=== PATIENT | male | born 1995 | race Caucasian/White ===

== ENCOUNTER 2016-03-02 10:39 | Emergency (ER) | payer SELFPAY ==
--- NOTE | 2016-03-02 10:52 | ER Document Report ---
ED Medical Screen (RME) - General Stated Complaint: EYE IRRITATION Notes: 20 yo male c/o bilat eye redness, swelling and drainage. pt treated with polytrim x 2 days, symptoms have gotten worse. no fever. noncontact wearer. no eye pain. TRAVEL OUTSIDE OF THE [place] IN LAST 30 DAYS: No - Related Data Allergies/Adverse Reactions: acetaminophen [From Tylenol] Adverse Reaction (Verified 01/23/16 11:03) Past Medical History Psychiatric Medical History: Reports: Hx Attention Deficit Hyperactivity Disorder - ODD - Immunizations Immunizations up to date: Yes Hx Diphtheria, Pertussis, Tetanus Vaccination: Yes Physical Exam - Vital signs Vitals: Temp Pulse Resp BP Pulse Ox 98.3 F 104 H 16 155/88 H 94 03/02/16 10:47 03/02/16 10:47 03/02/16 10:47 03/02/16 10:47 03/02/16 10:47 Course - Vital Signs Vital signs: Temp Pulse Resp BP Pulse Ox 98.3 F 104 H 16 155/88 H 94 03/02/16 10:47 03/02/16 10:47 03/02/16 10:47 03/02/16 10:47 03/02/16 10:47
[2016-03-02] MEDS ORDERED: TETRACAINE HCL 0.5% OPH SOLN 2 ML OU ONE (11:39)
--- NOTE | 2016-03-02 11:43 | ER Document Report ---
HPI - HPI Onset: Other - Monday Onset/Duration: Gradual Pain Level: 3 Context: 20-year-old noncontact lens wearer complaining of redness, drainage, to both eyes. The right eye hurts. He states his vision is now blurry in the right eye. He started polytrim eyedrops which he uses 6 times a day since 02-27, when he was seen at [facility] he was tx in triage without exam. He was exposed to someone in the same bed that had conjunctivitis. Associated Symptoms: None Exacerbated by: Other - light Relieved by: Denies Similar symptoms previously: No - ROS ROS below otherwise negative: Yes Systems Reviewed and Negative: Yes All other systems reviewed and negative - REPRODUCTIVE Reproductive: DENIES: : - DERM Skin Color: Normal Past Medical History - General Information source: Patient - Social History Smoking Status: Current Every Day Smoker Chew tobacco use (# tins/day): Yes Frequency of alcohol use: Social Drug Abuse: Marijuana Lives with: Family Family History: Reviewed & Not Pertinent Patient has suicidal ideation: No Patient has homicidal ideation: No Psychiatric Medical History: Reports: Hx Attention Deficit Hyperactivity Disorder - ODD - Immunizations Immunizations up to date: Yes Hx Diphtheria, Pertussis, Tetanus Vaccination: Yes Vertical Provider Document - CONSTITUTIONAL Agree With Documented VS: Yes Exam Limitations: No Limitations General Appearance: No Apparent Distress - INFECTION CONTROL TRAVEL OUTSIDE OF THE [place] IN LAST 30 DAYS: No - HEENT HEENT: Conjuctival Injection - bright palpebral more than bulbar. no limbic flare. no fluorescein uptake. No FB., Normocephalic, PERRLA - NECK Neck: Supple. negative: Lymphadenopathy-Left, Lymphadenopathy-Right Notes: right preauricular node - RESPIRATORY O2 Sat by Pulse Oximetry: 94 - NEURO Level of Consciousness: Awake, Alert - DERM Integumentary: Warm, Dry, No Rash Course - Re-evaluation Re-evalutation: 03/02/16 12:28 consult siddharth ibarra. - Vital Signs Vital signs: Temp Pulse Resp BP Pulse Ox 98.3 F 104 H 16 155/88 H 94 03/02/16 10:47 03/02/16 10:47 03/02/16 10:47 03/02/16 10:47 03/02/16 10:47 Discharge - Discharge Clinical Impression: Bilateral conjunctivitis Qualifiers: Conjunctivitis type: acute Acute conjunctivitis type: unspecified Qualified Code(s): H10.33 - Unspecified acute conjunctivitis, bilateral Condition: Good Disposition: HOME, SELF-CARE Instructions: Conjunctivitis ([facility]), Eyedrop Use ([facility]) Additional Instructions: stop the polymixin eyedrops start the new eyedrops- besovance. 1 drop each eye three times per day see the eye doctor for follow up tomorrow to er if fworse Forms: Return to Work Referrals: LANA GALAVIZ MD [ACTIVE STAFF] - Follow up tomorrow
[2016-03-02] MEDS ORDERED: DIPHENHYDRAMINE HCL 50 MG CAPSULE PO ONE (11:49)
[2016-03-02] MEDS ORDERED: IBUPROFEN 800 MG TABLET PO ONE (11:49)
[2016-03-02] MEDS ORDERED: BESIFLOXACIN HCL 0.6% OPH SUSP 5 ML BOTTLE OU ONE (12:25)
[2016-03-02 12:57] VITALS: BP 153/90
== END 2016-03-02 12:50 | disposition home or self-care (01) ==
LOC: EEVIPCON 10:39 → ER 10:39
DX: H10.33 Unspecified acute conjunctivitis, bilateral (principal); H53.8 Other visual disturbances; F17.210 Nicotine dependence, cigarettes, uncomplicated
CPT/HCPCS: 99282

== ENCOUNTER 2016-03-03 15:54 | Emergency (ER) | payer SELFPAY ==
--- NOTE | 2016-03-03 16:10 | ER Document Report ---
ED Medical Screen (RME) - General Chief Complaint: Eye Problem Stated Complaint: EYE SWELLING Time seen by provider: 16:08 Mode of Arrival: Ambulatory Information source: Patient Notes: 20-year-old male presents to ED for continued IV pain drainage from both eyes. He was seen yesterday for the same was started on eyedrops with no relief states that they didn't change the eyedrops and he still has had no relief has not been able to sleep and his eyes are very painful. Patient states that the problem has been going on now for a week with no relief. He has not been to an eye doctor yet. I have greeted and performed a rapid initial assessment of this patient. A comprehensive ED assessment and evaluation of the patient, analysis of test results and completion of medical decision making process will be conducted by an additional ED providers. TRAVEL OUTSIDE OF THE [place] IN LAST 30 DAYS: No - Related Data Allergies/Adverse Reactions: acetaminophen [From Tylenol] Adverse Reaction (Verified 03/03/16 16:07) Past Medical History Renal/ Medical History: Denies: Hx Peritoneal Dialysis Psychiatric Medical History: Reports: Hx Attention Deficit Hyperactivity Disorder - ODD - Immunizations Immunizations up to date: Yes Hx Diphtheria, Pertussis, Tetanus Vaccination: Yes Physical Exam - Vital signs Vitals: Temp Pulse Resp BP Pulse Ox 97.8 F 88 16 138/86 H 96 03/03/16 16:01 03/03/16 16:01 03/03/16 16:01 03/03/16 16:01 03/03/16 16:01 Course - Vital Signs Vital signs: Temp Pulse Resp BP Pulse Ox 97.8 F 88 16 138/86 H 96 03/03/16 16:01 03/03/16 16:01 03/03/16 16:01 03/03/16 16:01 03/03/16 16:01
[2016-03-03] MEDS ORDERED: CYCLOPENTOLATE HCL 1% OPH SOLN 2 ML OU ONE (17:10)
--- NOTE | 2016-03-03 17:20 | ER Document Report ---
ED General - General Chief Complaint: Eye Problem Stated Complaint: EYE SWELLING Mode of Arrival: Ambulatory Notes: 20-year-old male here with complaints of bilateral eye pain redness watering and light sensitivity that has been ongoing for approximately one week. He denies getting anything into his eyes. He was seen once at the [facility] emergency department and then again here yesterday and was prescribed an antibiotic drop. He states that he's been using the antibiotic drop. He states that his main complaint is that he cannot sleep due to the symptoms. He was instructed yesterday to follow-up with Dr. Galaviz of ophthalmology. When asked if he followed up with the [facility], patient states "oh, I forgot". TRAVEL OUTSIDE OF THE [place] IN LAST 30 DAYS: No - Related Data Allergies/Adverse Reactions: acetaminophen [From Tylenol] Adverse Reaction (Verified 03/03/16 16:07) Past Medical History - General Information source: Patient - Social History Smoking Status: Current Every Day Smoker Family History: Reviewed & Not Pertinent Patient has suicidal ideation: No Patient has homicidal ideation: No Renal/ Medical History: Denies: Hx Peritoneal Dialysis Psychiatric Medical History: Reports: Hx Attention Deficit Hyperactivity Disorder - ODD - Immunizations Immunizations up to date: Yes Hx Diphtheria, Pertussis, Tetanus Vaccination: Yes Review of Systems - Review of Systems Notes: See history of present illness for pertinent positive review of systems; otherwise all review of systems have been reviewed and are negative Physical Exam - Vital signs Vitals: Temp Pulse Resp BP Pulse Ox 97.8 F 88 16 138/86 H 96 03/03/16 16:01 03/03/16 16:01 03/03/16 16:01 03/03/16 16:01 03/03/16 16:01 - Notes Notes: PHYSICAL EXAMINATION: GENERAL: Well-appearing and in no acute distress. HEAD: Atraumatic, normocephalic. EYES: Pupils equal round and reactive to light, extraocular movements intact, conjunctiva with moderate to severe chemosis visualized, some mild yellow drainage ENT: nares patent, oropharynx clear without exudates. Moist mucous membranes. NECK: Normal range of motion, supple without lymphadenopathy LUNGS: CTAB and equal. No wheezes rales or rhonchi. HEART: Regular rate and rhythm without murmurs ABDOMEN: Soft, no tenderness. No guarding, no rebound EXTREMITIES: Normal range of motion, no pitting edema. No cyanosis. NEUROLOGICAL: Cranial nerves grossly intact. Normal sensory/motor exams. PSYCH: Normal mood, normal affect. SKIN: Warm, Dry, normal turgor, no rashes or lesions noted Course - Re-evaluation Re-evalutation: 03/03/16 17:18 MEDICAL DECISION MAKING: Concern for bacterial conjunctivitis versus epidemic keratoconjunctivitis versus anterior uveitis He likely has some component of anterior uveitis so I'll send him home with a bottle of Cyclogyl He is noncompliant and has not followed up with ophthalmology I discussed with him the importance of following up with them first thing in the morning I will send him home with prescription for Phenergan to allow him to get some sleep Patient understands and agrees to the plan of care - Vital Signs Vital signs: Temp Pulse Resp BP Pulse Ox 97.8 F 88 16 138/86 H 96 03/03/16 16:01 03/03/16 16:01 03/03/16 16:01 03/03/16 16:01 03/03/16 16:01 Discharge - Discharge Clinical Impression: Acute eye pain Bilateral conjunctivitis Qualifiers: Conjunctivitis type: acute Acute conjunctivitis type: unspecified Qualified Code(s): H10.33 - Unspecified acute conjunctivitis, bilateral Condition: Good Disposition: HOME, SELF-CARE Additional Instructions: You were seen in the emergency department at [facility]. Continue using your antibiotic drops. Also use the Cyclogyl drops you were given here in the emergency department 3 times daily for the next few days. You were prescribed Phenergan which is a sedating medication so be sure not to operate heavy machinery (example - driving) and be sure you are not too sedated to walk appropriately. Please followup with the [facility] first thing in the morning for further management/evaluation. Please return to the emergency department for worsening of symptoms or any symptom that you deem to be concerning or life-threatening. Thank you for allowing us to be part of your care. Prescriptions: Promethazine HCl [Phenergan 25 mg Tablet] 25 mg PO Q8HP PRN #7 tablet PRN Reason: Sleep Or Insomnia Meloxicam [Mobic 15 mg Tablet] 15 mg PO DAILYP PRN #7 tablet PRN Reason: Referrals: LANA GALAVIZ MD [ACTIVE STAFF] - Follow up tomorrow
[2016-03-03 17:48] VITALS: BP 140/77
== END 2016-03-03 17:48 | disposition home or self-care (01) ==
LOC: EEVIPCON 15:54 → ER 15:54
DX: H10.33 Unspecified acute conjunctivitis, bilateral (principal); H57.13 Ocular pain, bilateral; F17.210 Nicotine dependence, cigarettes, uncomplicated
CPT/HCPCS: 99283; J3490

== ENCOUNTER 2016-05-31 02:16 | Emergency (ER) | payer OTHER ==
[2016-05-31] MEDS ORDERED: OXYCODONE HCL IR 5 MG TABLET PO ONE (03:38)
[2016-05-31] MEDS ORDERED: OXYCODONE-ACETAMINOPHEN 5-325 MG TABLET PO ONE (03:38)
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
[2016-05-31 07:06] VITALS: BP 134/64
== END 2016-05-31 07:06 | disposition home or self-care (01) ==
LOC: ER 02:16
DX: S16.1XXA Strain of muscle, fascia and tendon at neck level, initial encounter (principal); S86.912A Strain of unspecified muscle(s) and tendon(s) at lower leg level, left leg, initial encounter; S50.01XA Contusion of right elbow, initial encounter; S20.212A Contusion of left front wall of thorax, initial encounter; S09.90XA Unspecified injury of head, initial encounter; V48.6XXA Car passenger injured in noncollision transport accident in traffic accident, initial encounter; M25.521 Pain in right elbow; M79.631 Pain in right forearm; R07.81 Pleurodynia; M25.562 Pain in left knee; M79.89 Other specified soft tissue disorders
CPT/HCPCS: 99284; 73070; 73090; 73562; 71101; 70450; 72125; L0120

== ENCOUNTER 2017-05-05 16:53 | Emergency (ER) | payer SELFPAY ==
[2017-05-05 17:40] VITALS: BP 138/92
--- NOTE | 2017-05-05 18:00 | ER Document Report ---
ED Substance Abuse / Acc. OD - General Mode of Arrival: Medic Information source: Patient, Parent, Emergency Med Personnel TRAVEL OUTSIDE OF THE [place] IN LAST 30 DAYS: No - HPI Patient complains to provider of: Accidental overdose, Drug abuse - Heroin Onset: This evening Associated Symptoms: Other - see notes above - General Chief Complaint: Accidental Overdose Stated Complaint: POSSIBLE OVERDOSE Time Seen by Provider: 05/05/17 17:33 Notes: 21 year old male with history of heroin abuse (started 1 year ago; with prior percocet abuse) presents to the ED via EMS after overdosing on heroin and being found unresponsive by his parents. Parents started CPR on the patient and EMS gave the patient 2 mg of Narcan before the patient was awake and alert. At bedside, patient explains that he was not trying to kill himself and he does not have any suicidal ideation. This is the first time Narcan has been used on the patient. Patient has tried quitting in the past, but has been unsuccessful because 'no one is helping'. Patient has tried to get help from Angie Rhys and his mother, both being unsuccessful. Patient is currently complaining of chest pain ('as if someone has stomped on it'), nausea, weakness, and malaise. Patient denies vomiting or diarrhea. (SANCHO BARKER) - Related Data Allergies/Adverse Reactions: acetaminophen [From Tylenol] Adverse Reaction (Verified 03/03/16 16:07) Past Medical History - General Information source: Patient - Social History Smoking Status: Never Smoker Chew tobacco use (# tins/day): No Drug Abuse: Heroin, Prescription drugs Family History: Reviewed & Not Pertinent Renal/ Medical History: Denies: Hx Peritoneal Dialysis Psychiatric Medical History: Reports: Hx Attention Deficit Hyperactivity Disorder - ODD - Immunizations Immunizations up to date: Yes Hx Diphtheria, Pertussis, Tetanus Vaccination: Yes Review of Systems - Review of Systems Constitutional: See HPI, Malaise, Weakness, Other - heroin overdose EENT: No symptoms reported Cardiovascular: See HPI, Chest pain Respiratory: No symptoms reported Gastrointestinal: See HPI, Nausea. denies: Diarrhea, Vomiting Genitourinary: No symptoms reported Male Genitourinary: No symptoms reported Musculoskeletal: No symptoms reported Skin: No symptoms reported Hematologic/Lymphatic: No symptoms reported Neurological/Psychological: No symptoms reported Physical Exam - Vital signs Vitals: Temp Pulse Resp BP Pulse Ox 98.3 F 95 14 138/92 H 100 05/05/17 16:53 05/05/17 16:53 05/05/17 16:53 05/05/17 16:53 05/05/17 16:53 - Notes Notes: GENERAL: Sleeping, but awakens easily when entering the room. Interacts well. No acute distress. Mild diaphoresis. No evidence of persistent opiate intoxication. No evidence of severe acute withdrawal. HEAD: Normocephalic, atraumatic. EYES: Pupils equal, round, and reactive to light. Extraocular movements intact. ENT: Oral mucosa moist, tongue midline. NECK: Full range of motion. Supple. Trachea midline. LUNGS: Clear to auscultation bilaterally, no wheezes, rales, or rhonchi. No respiratory distress. HEART: Regular rate and rhythm. No murmurs, gallops, or rubs. Complains of chest pain, but no significant tenderness to palpation. ABDOMEN: Soft, non-tender. Non-distended. Bowel sounds present in all 4 quadrants. EXTREMITIES: Moves all 4 extremities spontaneously. No edema, radial pulses 2/4 bilaterally. No cyanosis. NEUROLOGICAL: Alert and oriented x3. Normal speech. No focal neurological deficits. PSYCH: Normal affect, normal mood. SKIN: Warm, dry, and normal turgor. No rashes or lesions noted. (SANCHO BARKER) Course - Re-evaluation Re-evalutation: 05/05/17 21:17 Patient is no longer acutely intoxicated, he has been observed for over an hour without any deterioration in his neurologic status. Patient denies suicidal ideation. Patient was offered medications to help with his very mild withdrawal symptoms. Patient states that he would rather not take medications he would simply rather go out and use it again. Patient already has Narcan at home, this was left for him by the quick response team with his parents. Patient is aware of the risk of overdosing again. States that he was not trying to commit suicide he was simply trying to get high. Denies any intention to overdose again this evening. Patient states nobody is willing to help him to get into rehab however there was a woman on the quick response team who said that she would come back tomorrow to help him get into rehab. Patient is encouraged by this. He did have an extensive discussion with the patient regarding possible outpatient resources and how he can contact them. Patient states that he would rather not contact anybody himself but he would rather have somebody make the referral for him. No indication for IVC, patient will be discharged to home. (MARTIR RAMOS) - Vital Signs Vital signs: Temp Pulse Resp BP Pulse Ox 98.3 F 95 14 138/92 H 100 05/05/17 16:53 05/05/17 16:53 05/05/17 16:53 05/05/17 16:53 05/05/17 16:53 - EKG Interpretation by Me Additional EKG results interpreted by me: 05/05/17 21:19 EKG shows sinus rhythm at a rate of 93, normal axis, normal intervals, no ST segment elevations or depressions, no T-wave inversions per my interpretation. ( MARTIR RAMOS) Discharge - Discharge Clinical Impression: Accidental heroin overdose Qualifiers: Encounter type: initial encounter Qualified Code(s): T40.1X1A - Poisoning by heroin, accidental (unintentional), initial encounter Condition: Stable Disposition: HOME, SELF-CARE Additional Instructions: You overdosed on heroin. This required Narcan to reverse it. Your parents were given Narcan to keep at home. You are offered multiple medications to help with your withdrawal symptoms. You have declined these medications. I have given you a list of substance abuse and therapy resources within the community. Please consider calling 1 of the rehab programs on the list. Scribe Attestation: 05/05/17 21:17 I personally performed the services described in the documentation, reviewed and edited the documentation which was dictated to the scribe in my presence, and it accurately records my words and actions. (MARTIR RAMOS) Scribe Documentation - Scribe Written by Julius:: Julius Bedoya, 05/05/2017 [id number] acting as scribe for :: River
--- NOTE | 2017-05-05 18:26 | RADIOLOGY REPORT (SQ) ---
EXAM DESCRIPTION: CHEST SINGLE VIEW COMPLETED DATE/TIME: 05/05/2017 6:14 pm REASON FOR STUDY: chest pain post CPR post OD COMPARISON: None. EXAM PARAMETERS: NUMBER OF VIEWS: One view. TECHNIQUE: Single frontal radiographic view of the chest acquired. RADIATION DOSE: NA LIMITATIONS: None. FINDINGS: LUNGS AND PLEURA: No opacities, masses or pneumothorax. No pleural effusion. MEDIASTINUM AND HILAR STRUCTURES: No masses. Contour normal. HEART AND VASCULAR STRUCTURES: Heart normal in size. Normal vasculature. BONES: No acute findings. HARDWARE: None in the chest. OTHER: No other significant finding. IMPRESSION: NO ACUTE RADIOGRAPHIC FINDING IN THE CHEST. TECHNICAL DOCUMENTATION: JOB ID: [id number] [employer]- All Rights Reserved Reading location - IP/workstation name: [email or web address]
--- NOTE | 2017-05-05 22:18 | EKG REPORT ---
SEVERITY:- NORMAL ECG - SINUS RHYTHM : Confirmed by: Leno Huerta 05-May-2017 22:17:56
== END 2017-05-05 18:45 | disposition home or self-care (01) ==
LOC: ER 16:53
DX: T40.1X1A Poisoning by heroin, accidental (unintentional), initial encounter (principal); R53.81 Other malaise; X58.XXXA Exposure to other specified factors, initial encounter; R11.0 Nausea; R07.9 Chest pain, unspecified; Z88.6 Allergy status to analgesic agent
CPT/HCPCS: 71045; 93005; 93010; 99285

== ENCOUNTER 2017-10-19 23:44 | Emergency (ER) | payer SELFPAY ==
[2017-10-20] VITALS: BP 142/85
--- NOTE | 2017-10-20 02:21 | ER Document Report ---
ED General - General Chief Complaint: Hemorrhoids Stated Complaint: POSSIBLE HEMORRHOID Time Seen by Provider: 10/20/17 01:53 TRAVEL OUTSIDE OF THE [place] IN LAST 30 DAYS: No - HPI Notes: Patient is a 22-year-old male that presents to the emergency department for chief complaint of hemorrhoids. Patient presents the emergency room with complaint of hemorrhoid. He states he has noticed swelling and pain for the last few days. He has been taking a warm bath once a day with minimal relief. Patient has not Tylenol allergy and has not taken any other [id number] pain medication. He does have a history of thrombosed hemorrhoids which required incision and drainage. He does not have a primary care or GI physician currently. Patient reports the pain is sharp and nonradiating. It is worse with sitting. Denies relieving factors. Past Medical History: Negative Past Surgical History: Negative Social History: Daily tobacco, occasional alcohol, denies drugs Family History: Reviewed and noncontributory for presenting illness Allergies: Reviewed, see documented allergy list. REVIEW OF SYSTEMS: CONSTITUTIONAL : No fever No chills No diaphoresis No recent illness EENT: No vision changes No congestion No sore throat CARDIOVASCULAR: No chest pain No palpitations No shortness of breath RESPIRATORY: No shortness of breath No cough No difficulty breathing GASTROINTESTINAL: No abdominal pain No nausea No vomiting No diarrhea GENITOURINARY: No dysuria No hematuria No difficulty urinating MUSCULOSKELETAL: No back pain No leg pain No arm pain SKIN: No rashes No lesions LYMPHATIC: No swollen, enlarged glands. NEUROLOGICAL: No lightheadedness No headache No weakness No paresthesias PSYCHIATRIC: No anxiety No depression PHYSICAL EXAMINATION: Vital signs reviewed, nursing noted reviewed. GENERAL: Well-appearing, well-nourished and in no acute distress. HEAD: Atraumatic, normocephalic. EYES: Eyes appear normal, extraocular movements intact, sclera anicteric, conjunctiva are normal. ENT: nares patent, oropharynx clear without exudates. Moist mucous membranes. NECK: Normal range of motion, supple without lymphadenopathy LUNGS: Breath sounds clear to auscultation bilaterally and equal. No wheezes rales or rhonchi. HEART: Regular rate and rhythm without murmurs ABDOMEN: Soft, nontender, normoactive bowel sounds. No rebound, guarding, or rigidity. No masses appreciated. : Small tender nonbleeding soft external hemorrhoid. No anal fissure. EXTREMITIES: Nontender, good range of motion, no pitting or edema. NEUROLOGICAL: No focal neurological deficits. Moves all extremities spontaneously Motor and sensory grossly intact on exam. PSYCH: Normal mood, normal affect. SKIN: Warm, Dry, normal turgor, no rashes or lesions noted on exposed skin - Related Data Allergies/Adverse Reactions: acetaminophen [From Tylenol] Adverse Reaction (Verified 03/03/16 16:07) Past Medical History - Social History Smoking Status: Unknown if Ever Smoked Family History: Reviewed & Not Pertinent Patient has suicidal ideation: No Patient has homicidal ideation: No Renal/ Medical History: Denies: Hx Peritoneal Dialysis Psychiatric Medical History: Reports: Hx Attention Deficit Hyperactivity Disorder - ODD - Immunizations Immunizations up to date: Yes Hx Diphtheria, Pertussis, Tetanus Vaccination: Yes Review of Systems - Review of Systems Notes: Dictated Physical Exam - Vital signs Vitals: Temp Pulse Resp BP Pulse Ox 98.0 F 81 20 142/85 H 98 10/19/17 23:59 10/19/17 23:59 10/19/17 23:59 10/19/17 23:59 10/19/17 23:59 - Notes Notes: Dictated Course - Re-evaluation Re-evalutation: 10/20/17 02:30 Vitals reviewed and stable. Patient's hemorrhoid is soft and not currently thrombosed. He was referred to GI and primary care for follow-up. He was counseled on sitz bath. He was given prescription for senna and MiraLAX for stool softeners. He will be given naproxen for pain. He was counseling return precautions and verbalized understanding. He will follow-up with referred physicians in the next few days. - Vital Signs Vital signs: Temp Pulse Resp BP Pulse Ox 98.0 F 81 20 142/85 H 98 10/19/17 23:59 10/19/17 23:59 10/19/17 23:59 10/19/17 23:59 10/19/17 23:59 Discharge - Discharge Clinical Impression: External hemorrhoid Condition: Stable Disposition: HOME, SELF-CARE Instructions: Family Physicians / Practices, Hemorrhoids ([facility]) Additional Instructions: Please return to the emergency department if you have any worsening, or concern of your symptoms. Please return to the emergency department if you develop chest pain, difficulty breathing, severe abdominal pain, or ongoing vomiting. Please follow-up with your primary care physician in 2-3 days and any other recommended physicians. If prescribed, take all medications as directed. If you have any questions or concerns do not hesitate to return the emergency department for evaluation. [] Prescriptions: Naproxen 500 mg PO BID #60 tablet Polyethylene Glycol 3350 [Miralax Powder 17 gm/Packet] 1 packet PO BID #1 pkg Sennosides/Docusate Sodium [Senna Laxative Tablet] 1 each PO DAILY #30 tablet Referrals: LYUBOV ANTHONY MD [ACTIVE STAFF] - Follow up as needed
[2017-10-20] MEDS ORDERED: NAPROXEN 250 MG TABLET PO ONE (02:32)
== END 2017-10-20 03:03 | disposition home or self-care (01) ==
LOC: EEVIPCON 23:44 → ER 23:44
DX: K64.4 Residual hemorrhoidal skin tags (principal)
CPT/HCPCS: 99282